=== PATIENT | female | born 1985 | race African-American/Black ===

== ENCOUNTER 2016-12-09 00:47 | Emergency (ER) | payer BC ==
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
== END 2016-12-09 01:47 | disposition home or self-care (01) ==
LOC: CED 00:47
DX: S16.1XXA Strain of muscle, fascia and tendon at neck level, initial encounter (principal); S29.012A Strain of muscle and tendon of back wall of thorax, initial encounter; S39.012A Strain of muscle, fascia and tendon of lower back, initial encounter; V43.52XA Car driver injured in collision with other type car in traffic accident, initial encounter
CPT/HCPCS: 72072; 72100; 84703; 99284